=== PATIENT | male | born 1950 | race Caucasian/White ===

== ENCOUNTER 2022-04-10 08:42 | Inpatient (IN) | payer MEDICARE ==
[~2022-04-10] VITALS: Ht 165.1 cm; Wt 51.5 kg
[2022-04-10] MEDS ORDERED: SODIUM CHLORIDE 0.9% 1000ML BAG (SEPSIS BOLUS) IV ONE (09:15)
[2022-04-10] MEDS ORDERED: PIPERACILLIN/TAZ 3.375G PREMIX 50 ML IV ONE (09:15)
[2022-04-10] MEDS ORDERED: VANCOMYCIN 1G PREMIX 200 ML IV ONE (09:15)
[2022-04-10 09:43] LABS: BASOPHILS % 0.3 % (0.0-2.0); CHLORIDE 105 mEq/L (98-107); EOSINOPHILS % 0.1 % (0.0-5.0); HEMATOCRIT. 32.9 % (42.0-52.0); HEMOGLOBIN. 10.6 g/dL (14.0-18.0); LYMPHOCYTES % 8.7 % (20.0-50.0); MEAN CORPUSCULAR HEMOGLOBIN 27.7 pg (28.0-32.0); MEAN CORPUSCULAR VOLUME 85.7 fL (80.0-94.0); MEAN PLATELET VOLUME 8.7 fl (7.4-10.4); MONOCYTES % 1.3 % (2.0-8.0); NEUTROPHILS % 89.6 % (40.0-76.0); PLATELET 123 x1000/uL (130-400); RED BLOOD CELL COUNT 3.84 mill/uL (4.7-6.1); RED CELL DISTRIBUTION WIDTH 19.9 % (11.6-14.6)
[2022-04-10 09:51] LABS: INR 1.1; PROTHROMBIN TIME 11.4 sec (9.6-11.0)
[2022-04-10 11:00] LABS: CLARITY URINE CLEAR (CLEAR); COLOR URINE YELLOW (YELLOW); KETONES URINE NEGATIVE (NEGATIVE); LEUKOCYTE ESTERASE URINE TRACE (NEGATIVE); NITRITE URINE POSITIVE (NEGATIVE); OCCULT BLOOD URINE TRACE (NEGATIVE); PH URINE 6.5 (4.5-8.0); PROTEIN URINE 1+ (NEGATIVE); SPECIFIC GRAVITY URINE 1.011 (1.005-1.030); UROBILINOGEN URINE 0.2 E.U./dL (0.2-1.0)
[2022-04-10] MEDS ORDERED: DOCUSATE SODIUM 100MG CAPSULE PO PRN (14:00)
[2022-04-10] MEDS ORDERED: GUAIFENESIN 200MG/10ML SUGAR FREE UDC PO PRN (14:00)
[2022-04-10] MEDS ORDERED: MAGNESIUM/ALUMINUM HYDROXIDE/SIMETHICONE 30ML UDC PO PRN (14:00)
[2022-04-10] MEDS ORDERED: ONDANSETRON HCL 4MG/2ML INJ IV PRN (14:00)
[2022-04-10] MEDS ORDERED: IPRATROPIUM/ALBUTEROL 0.5-3(2.5)MG/3ML NEB NEB PRN (14:00)
[2022-04-10] MEDS ORDERED: KETOROLAC 15MG/ML VIAL IV PRN (14:00)
[2022-04-10] MEDS ORDERED: ACETAMINOPHEN 325MG TABLET PO PRN ×2 (14:00)
[2022-04-10] MEDS ORDERED: CLONIDINE 0.1MG TABLET PO PRN (14:00)
[2022-04-10] MEDS ORDERED: NITROGLYCERIN 0.4MG TABLET SL SL PRN (14:00)
[2022-04-10] MEDS: SODIUM CHLORIDE 0.9% 1,000 ML IV SCH (14:12)
[2022-04-10] MEDS: ENOXAPARIN 40MG/0.4ML SYR SUBCUT SCH (14:44)
[2022-04-10] MEDS: MEROPENEM 1,000 MG in SODIUM CHLORIDE 0.9% 100 ML IV SCH ×2 (14:44→22:00)
[2022-04-10 15:11] VITALS: BP 103/44
[2022-04-10] MEDS ORDERED: IPRATROPIUM BROMIDE (0.02%) 0.5MG/2.5ML NEB HHN PRN (15:15)
[2022-04-10] MEDS ORDERED: ALBUTEROL (0.083%) 2.5MG/3ML NEB HHN PRN (15:15)
[2022-04-10] MEDS: ZINC SULFATE 220 MG ( 50 ) CAPSULE PO SCH (15:43)
[2022-04-10] MEDS: ASCORBIC ACID 500 MG TABLET PO SCH ×2 (15:43→20:53)
[2022-04-10] MEDS ORDERED: FURO40TA5 PO (18:52)
[2022-04-10] MEDS ORDERED: CHOL400D2 MT (18:52)
[2022-04-10] MEDS ORDERED: SENN-257 PO (18:52)
[2022-04-10] MEDS ORDERED: MAGN200T4 PO (18:52)
[2022-04-10] MEDS ORDERED: DOCU100T PO (18:52)
[2022-04-10] MEDS ORDERED: FOLI-43 PO (18:52)
[2022-04-10] MEDS ORDERED: MULT-379 MT (18:52)
[2022-04-10] MEDS ORDERED: OLAN2.5T29 PO (18:52)
[2022-04-10] MEDS ORDERED: OMEG-119 MT (18:52)
[2022-04-10] MEDS ORDERED: THIA50TA12 MT (18:52)
[2022-04-10] MEDS ORDERED: MELA3TAB40 PO (18:52)
[2022-04-10 19:54] LABS: T4 FREE 1.2 ng/dL (0.76-1.46)
[2022-04-10 20:00] VITALS: BP 93/48
[2022-04-10 20:11] LABS: VITAMIN B12 SERUM 501 pg/mL (211-911)
[2022-04-10] MEDS: FAMOTIDINE 20MG TABLET PO SCH (20:54)
[2022-04-10 23:53] LABS: *AMPHETAMINES SCREEN URINE NEGATIVE (NEGATIVE); *BARBITURATES SCREEN URINE NEGATIVE (NEGATIVE); *BENZODIAZEPINES SCREEN URINE NEGATIVE (NEGATIVE); *COCAINE SCREEN URINE NEGATIVE (NEGATIVE); CANNABINOID URINE SCREEN NEGATIVE (NEGATIVE); METHADONE URINE SCREEN NEGATIVE (NEGATIVE); OPIATES URINE SCREEN NEGATIVE (NEGATIVE); PHENCYCLIDINE URINE SCREEN NEGATIVE (NEGATIVE)
[2022-04-11] VITALS: BP 105/56
[2022-04-11 03:04] LABS: CREATINE KINASE MB FRACTION 1.4 ng/mL (0.5-3.6)
[2022-04-11 04:00] VITALS: BP 90/50
[2022-04-11] MEDS: SODIUM CHLORIDE 0.9% 1,000 ML IV SCH ×2 (04:13→18:18)
[2022-04-11] MEDS: MEROPENEM 1,000 MG in SODIUM CHLORIDE 0.9% 100 ML IV SCH (05:09)
[2022-04-11 07:40] LABS: HEMOGLOBIN. 8.8 g/dL (14.0-18.0); MEAN CORPUSCULAR HEMOGLOBIN 27.9 pg (28.0-32.0); MEAN CORPUSCULAR VOLUME 85.9 fL (80.0-94.0); MEAN PLATELET VOLUME 9.1 fl (7.4-10.4); PLATELET 110 x1000/uL (130-400); RED BLOOD CELL COUNT 3.14 mill/uL (4.7-6.1); RED CELL DISTRIBUTION WIDTH 20.1 % (11.6-14.6)
[2022-04-11 07:45] LABS: CHLORIDE 114 mEq/L (98-107)
[2022-04-11 07:57] LABS: PHOSPHORUS 2.6 mg/dL (2.5-4.9)
[2022-04-11 08:00] VITALS: BP 97/50
[2022-04-11] MEDS ORDERED: VANCOMYCIN 1.25GM PMX (XELLIA) 250 ML IV SCH (08:00)
[2022-04-11] MEDS: ASCORBIC ACID 500 MG TABLET PO SCH ×2 (08:15→21:00)
[2022-04-11] MEDS: ZINC SULFATE 220 MG ( 50 ) CAPSULE PO SCH (08:15)
[2022-04-11] MEDS: FAMOTIDINE 20MG TABLET PO SCH (08:15)
[2022-04-11 12:00] VITALS: BP 93/43
[2022-04-11 13:19] LABS: PLATELET ESTIMATE DECREASED
[2022-04-11] MEDS: ENOXAPARIN 40MG/0.4ML SYR SUBCUT SCH (14:15)
[2022-04-11 16:00] VITALS: BP 117/55
[2022-04-11] MEDS: MEROPENEM 1000MG in NORMAL SALINE 100ML IV SCH (18:19)
[2022-04-11 20:00] VITALS: BP 119/63
[2022-04-12] VITALS: BP 133/66
[2022-04-12] MEDS: ZOLPIDEM TARTRATE 5MG TABLET PO PRN ×2 (03:14→22:55)
[2022-04-12 04:00] VITALS: BP 120/65
[2022-04-12] MEDS: MEROPENEM 1000MG in NORMAL SALINE 100ML IV SCH ×2 (06:53→17:36)
[2022-04-12] MEDS: SODIUM CHLORIDE 0.9% 1,000 ML IV SCH ×2 (06:54→20:19)
[2022-04-12] MEDS ORDERED: VANCOMYCIN 500MG PREMIX 100 ML IV SCH (09:00)
[2022-04-12] MEDS: ZINC SULFATE 220 MG ( 50 ) CAPSULE PO SCH (09:51)
[2022-04-12] MEDS: FAMOTIDINE 20MG TABLET PO SCH (09:51)
[2022-04-12] MEDS: ASCORBIC ACID 500 MG TABLET PO SCH ×2 (09:52→20:40)
[2022-04-12 11:13] VITALS: BP 125/65
[2022-04-12] MEDS: ENOXAPARIN 30MG/0.3ML SYR SUBCUT SCH (14:00)
[2022-04-12 16:00] VITALS: BP 107/60
[2022-04-12 20:00] VITALS: BP 148/79
[2022-04-13] VITALS: BP 140/75
[2022-04-13 04:00] VITALS: BP 141/74
[2022-04-13] MEDS: MEROPENEM 1000MG in NORMAL SALINE 100ML IV SCH ×2 (05:42→17:50)
[2022-04-13 08:00] VITALS: BP 113/61
[2022-04-13] MEDS: SODIUM CHLORIDE 0.9% 1,000 ML IV SCH ×2 (08:40→23:00)
[2022-04-13 08:41] LABS: BASOPHILS % 0.9 % (0.0-2.0); EOSINOPHILS % 1.5 % (0.0-5.0); HEMATOCRIT. 28.3 % (42.0-52.0); HEMOGLOBIN. 9.3 g/dL (14.0-18.0); LYMPHOCYTES % 17.5 % (20.0-50.0); MEAN CORPUSCULAR HEMOGLOBIN 27.9 pg (28.0-32.0); MEAN PLATELET VOLUME 8.8 fl (7.4-10.4); MONOCYTES % 11.4 % (2.0-8.0); NEUTROPHILS % 68.7 % (40.0-76.0); PLATELET 137 x1000/uL (130-400); RED BLOOD CELL COUNT 3.33 mill/uL (4.7-6.1); RED CELL DISTRIBUTION WIDTH 19.2 % (11.6-14.6)
[2022-04-13 09:18] LABS: CHLORIDE 109 mEq/L (98-107)
[2022-04-13] MEDS: ASCORBIC ACID 500 MG TABLET PO SCH ×2 (10:45→22:59)
[2022-04-13] MEDS: FAMOTIDINE 20MG TABLET PO SCH (10:45)
[2022-04-13] MEDS: ZINC SULFATE 220 MG ( 50 ) CAPSULE PO SCH (10:45)
[2022-04-13 12:00] VITALS: BP 115/60
[2022-04-13] MEDS: ENOXAPARIN 30MG/0.3ML SYR SUBCUT SCH (14:11)
[2022-04-13 16:00] VITALS: BP 118/64
[2022-04-13 20:00] VITALS: BP 117/60
[2022-04-14] VITALS: BP 122/59
[2022-04-14 04:00] VITALS: BP 132/65
[2022-04-14] MEDS: MEROPENEM 1000MG in NORMAL SALINE 100ML IV SCH ×2 (06:37→17:13)
[2022-04-14 08:00] VITALS: BP 108/65
[2022-04-14] MEDS: ASCORBIC ACID 500 MG TABLET PO SCH ×2 (08:24→20:47)
[2022-04-14] MEDS: ZINC SULFATE 220 MG ( 50 ) CAPSULE PO SCH (08:24)
[2022-04-14] MEDS: FAMOTIDINE 20MG TABLET PO SCH (08:24)
[2022-04-14 12:00] VITALS: BP 105/45
[2022-04-14] MEDS: ENOXAPARIN 30MG/0.3ML SYR SUBCUT SCH (13:20)
[2022-04-14 16:00] VITALS: BP 131/55
[2022-04-14 20:00] VITALS: BP 152/77
[2022-04-14] MEDS: ZOLPIDEM TARTRATE 5MG TABLET PO PRN (22:33)
[2022-04-15] VITALS: BP 144/71
[2022-04-15 04:00] VITALS: BP 123/67
[2022-04-15] MEDS: MEROPENEM 1000MG in NORMAL SALINE 100ML IV SCH ×2 (06:08→17:03)
[2022-04-15 08:00] VITALS: BP 105/54
[2022-04-15] MEDS: FAMOTIDINE 20MG TABLET PO SCH (09:28)
[2022-04-15] MEDS: ASCORBIC ACID 500 MG TABLET PO SCH ×2 (09:28→21:00)
[2022-04-15] MEDS: ZINC SULFATE 220 MG ( 50 ) CAPSULE PO SCH (09:28)
[2022-04-15 12:00] VITALS: BP_SYST 90; BP_SYST 99; BP_DIAS 48; BP_DIAS 52
[2022-04-15] MEDS: ENOXAPARIN 30MG/0.3ML SYR SUBCUT SCH (13:08)
[2022-04-15 16:00] VITALS: BP 103/51
[2022-04-15 20:00] VITALS: BP 90/60
[2022-04-16 04:00] VITALS: BP 122/61
[2022-04-16 08:00] VITALS: BP 121/50
[2022-04-16] MEDS: ASCORBIC ACID 500 MG TABLET PO SCH ×2 (09:00→20:44)
[2022-04-16] MEDS: FAMOTIDINE 20MG TABLET PO SCH (09:00)
[2022-04-16] MEDS: ZINC SULFATE 220 MG ( 50 ) CAPSULE PO SCH (09:00)
[2022-04-16 12:00] VITALS: BP 120/52
[2022-04-16] MEDS: ENOXAPARIN 30MG/0.3ML SYR SUBCUT SCH (13:49)
[2022-04-16 16:00] VITALS: BP 110/48
[2022-04-16] MEDS: MEROPENEM 1,000 MG in SODIUM CHLORIDE 0.9% 100 ML IV SCH ×2 (16:57→23:47)
[2022-04-16 20:00] VITALS: BP 118/58
[2022-04-16] MEDS ORDERED: ZOLPIDEM TARTRATE 5MG TABLET PO PRN (21:00)
[2022-04-17] VITALS: BP 128/47
[2022-04-17 04:00] VITALS: BP 118/53
[2022-04-17 08:00] VITALS: BP 109/61
[2022-04-17] MEDS: MEROPENEM 1,000 MG in SODIUM CHLORIDE 0.9% 100 ML IV SCH ×3 (08:00→16:00)
[2022-04-17] MEDS: ASCORBIC ACID 500 MG TABLET PO SCH ×3 (09:15→21:38)
[2022-04-17] MEDS: ZINC SULFATE 220 MG ( 50 ) CAPSULE PO SCH (09:15)
[2022-04-17] MEDS: FAMOTIDINE 20MG TABLET PO SCH (09:15)
[2022-04-17 12:00] VITALS: BP 90/60
[2022-04-17] MEDS: ENOXAPARIN 30MG/0.3ML SYR SUBCUT SCH (13:42)
[2022-04-17 16:00] VITALS: BP 91/62
[2022-04-17 20:00] VITALS: BP 113/44
[2022-04-18] MEDS: MEROPENEM 1,000 MG in SODIUM CHLORIDE 0.9% 100 ML IV SCH ×2 (00:14→08:44)
[2022-04-18 08:00] VITALS: BP 116/54
[2022-04-18] MEDS: ASCORBIC ACID 500 MG TABLET PO SCH (08:44)
[2022-04-18] MEDS: FAMOTIDINE 20MG TABLET PO SCH (08:44)
[2022-04-18] MEDS: ZINC SULFATE 220 MG ( 50 ) CAPSULE PO SCH (08:44)
[2022-04-18 12:00] VITALS: BP 124/46
[2022-04-18] MEDS ORDERED: POTASSIUM CHLORIDE 20MEQ TABLET SR PO NR (12:45)
[2022-04-18] MEDS: ENOXAPARIN 30MG/0.3ML SYR SUBCUT SCH (13:36)
[2022-04-18 14:20] VITALS: BP 124/46
== END 2022-04-18 15:00 | DRG 871 ==
LOC: ER 08:42 → EDBEDREQSVC 10:45 → MICUSO 11:37 → EDBEDREQTM 11:39 → EDBEDREQ 11:39 → 7EST 15:05 → 5WST 04-17 22:49
PROVIDERS: ADMIT Internal Medicine; ATTEND Internal Medicine
DX: A41.51 Sepsis due to Escherichia coli [E. coli] (principal); G92.8 Other toxic encephalopathy; N39.0 Urinary tract infection, site not specified; F20.9 Schizophrenia, unspecified; R65.20 Severe sepsis without septic shock; Z20.822 Contact with and (suspected) exposure to COVID-19; F03.90 Unspecified dementia, unspecified severity, without behavioral disturbance, psychotic disturbance, mood disturbance, and anxiety; F10.20 Alcohol dependence, uncomplicated; Z78.1 Physical restraint status
CPT/HCPCS: 36415; 71045; 80048; 80053; 80061; 80305; 81003; 82550; 82553; 82607; 82746; 83036; 83540; 83550; 83605; 83735; 84100; 84145; 84439; 84443; 84484; 85025; 87077; 87186; 87426; 87804; 93005; 93306; 93970; 99291; C9803; J1650; J2185; J2543; J3370; J7030; J7050; U0003